=== PATIENT | male | born 2000 | race Hispanic/Latino ===

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

== ENCOUNTER 2019-01-22 06:41 | Emergency (ER) | payer BC ==
[2019-01-22] MEDS ORDERED: Ketorolac Tromethamine 30 MG/ML VIAL ONE (07:07)
== END 2019-01-22 07:30 | disposition home or self-care (01) ==
LOC: SCSER 06:41
DX: M27.8 Other specified diseases of jaws (principal)
CPT/HCPCS: 96372; 99283; J1885

== ENCOUNTER 2019-01-24 21:37 | Emergency (ER) | payer BC ==
[~2019-01-24 21:37] MED LIST: ISOVUE-370 76%-LOCM 1 ML ONE
[2019-01-25] MEDS ORDERED: Clindamycin 150 MG CAP ONE (00:01)
[2019-01-25 00:02] LABS: #Basophils 0.1 thou/uL (0.0-0.2); #Eosinphils 0.3 thou/uL (0.0-0.7); #Lymphocytes 1.7 thou/uL (1.20-3.40); #Monocytes 0.9 thou/uL (0.11-0.59); #Neutrophils 4.5 thou/uL (1.40-6.50); %Eosinophils 4.2 % (0.0-10.0); %Lymphocytes 22.3 % (28.0-48.0); %Monocytes 12.1 % (0.0-4.0); %Neutrophils 60.4 % (31.0-61.0); Mean Corpuscular HGB CONC 33.5 g/dL (32.0-36.0); Mean Corpuscular Hemoglobin 29.5 pg (25.0-35.0); Mean Platelet Volume 6.5 fL (7.4-10.4); Platelet Count 247 thou/uL (130-400); RBC Distribution Width 11.8 % (11.5-14.5); White Blood Cell (WBC) Count 7.5 thou/uL (4.8-10.8)
[2019-01-25 00:20] LABS: ALT (SGPT) 10 U/L (8-55); AST (SGOT) 13 U/L (10-45); Albumin 4.2 g/dL (3.5-5.0); Alkaline Phosphatase 68 U/L (50-130); Anion Gap 14 mmol/L (10-20); BUN (Urea Nitrogen) 11 mg/dL (8.4-21.0); Bilirubin, Total 0.9 mg/dL (0.2-1.2); Calc. Creatinine Clearance 0 mL/min (70-130); Calcium 9.6 mg/dL (7.8-10.44); Carbon Dioxide 27 mmol/L (22-29); Chloride 99 mmol/L (98-107); Estimated GFR-MDRD Greater than 90; Globulin 3.4 g/dL (2.4-3.5); Glucose 83 mg/dL (70-105); Protein, Total 7.6 g/dL (6.0-8.3); Sodium 136 mmol/L (136-145)
[2019-01-25] MEDS ORDERED: Morphine 4 MG/ML VIAL ONE (02:19)
[2019-01-25] MEDS ORDERED: Ketorolac Tromethamine 30 MG/ML VIAL ONE (02:19)
--- NOTE | 2019-01-25 09:03 | CT ---
PRELIMINARY REPORT/[facility]/EMERGENCY AFTER HOURS PROCEDURE: PROCEDURE INFORMATION: Exam: CT Maxillofacial Without Contrast Exam date and time: 01/25/2019 12:09 AM Clinical history: 18 years old, male; Patient HX: 18 yo with left lower tooth abscess. Had partial ro ot canal yesterday, has been taking amoxicillin. Swelling worsened, subj. Fevers, chills pain and eugene thema spreading from mandible down neck. No other medical problems. TECHNIQUE: Imaging protocol: Computed tomography images of the face without contrast. COMPARISON: No relevant prior studies available. FINDINGS: Orbits: Orbits are normal. Globes are unremarkable. Sinuses: Normal. No air-fluid levels. Bones/joints: No acute fracture. No dislocation. Lymph nodes: Submandibular / submental adenopathy, left > right, likely reactive. Soft tissues: Extensive dental amalgam produces streak artifact. Skin thickening and infitrative fat stranding about the left mandibular body, face, and neck, with associated 1.1 x 0.8 x 0.4 cm subperio steal abscess ventral to the left mandibular body, 3 cm lateral to midline (series 2, image 50). IMPRESSION: Left facial / neck cellulitis with left mandibular body subperiosteal abscess. This abscess is likely not drainable percuatneously due to size / position. No soft tissue gas. No thrombophlebitis. Thank you for allowing us to participate in the care of your patient. Dictated and Authenticated by: Jo Ann Del Cid MD 01/25/2019 1:12 AM Central Time ([place] & [place]) FINAL REPORT EMERGENCY AFTER HOURS CT FACIAL BONES: FINDINGS/IMPRESSION: I agree with the findings and impression given in the preliminary report per [facility] physician. There is a left mandibular subperiosteal fluid collection which may represent a very small abscess. POS: [facility]
== END 2019-01-25 02:30 | disposition home or self-care (01) ==
LOC: ERS 21:37
DX: K04.7 Periapical abscess without sinus (principal); L03.221 Cellulitis of neck
CPT/HCPCS: 70487; 80053; 85025; 96374; 96375; J1885; J2270

== ENCOUNTER 2019-10-02 16:52 | Emergency (ER) | payer BC, OTHER ==
[2019-10-03 14:32] LABS: SARS-CoV-2 MS2 Positive; SARS-CoV-2 N Gene Negative; SARS-CoV-2 S Gene Negative; SARS-CoV-2 orf1ab Negative
== END 2019-10-02 17:14 | disposition home or self-care (01) ==
LOC: ERS 16:52
DX: J34.89 Other specified disorders of nose and nasal sinuses (principal); Z20.828 Contact with and (suspected) exposure to other viral communicable diseases
CPT/HCPCS: 87635; 99283; U0003

== ENCOUNTER 2020-02-05 20:10 | Emergency (ER) | payer BC ==
[2020-02-05] MEDS ORDERED: Acetaminophen 500 MG TAB ONE (21:34)
[2020-02-05] MEDS ORDERED: Ondansetron PF 4 MG/2 ML Vial ONE (22:06)
[2020-02-05] MEDS ORDERED: Ketorolac Tromethamine 30 MG/ML VIAL ONE (22:06)
[2020-02-05 22:22] LABS: Hemoglobin 15.6 g/dL (14.0-18.0); Mean Corpuscular HGB CONC 34.8 g/dL (32.0-36.0); Mean Corpuscular Hemoglobin 31.3 pg (25.0-35.0); Mean Corpuscular Volume 89.9 fL (78.0-98.0); RBC Distribution Width 12.4 % (11.5-14.5); Red Blood Cell (RBC) Count 4.99 mill/uL (4.00-5.20); White Blood Cell (WBC) Count 3.2 thou/uL (4.8-10.8)
[2020-02-05 22:43] LABS: ALT (SGPT) 15 U/L (8-55); AST (SGOT) 24 U/L (5-34); Albumin 3.8 g/dL (3.5-5.0); Alkaline Phosphatase 67 U/L (50-130); Anion Gap 15 mmol/L (10-20); BUN (Urea Nitrogen) 12 mg/dL (8.9-20.6); Bilirubin, Total 0.4 mg/dL (0.2-1.2); Calc. Creatinine Clearance 0 mL/min (70-130); Calcium 8.5 mg/dL (7.8-10.44); Carbon Dioxide 24 mmol/L (22-29); Chloride 96 mmol/L (98-107); Estimated GFR-MDRD Greater than 90; Globulin 3.3 g/dL (2.4-3.5); Glucose 106 mg/dL (70-105); Potassium 3.6 mmol/L (3.5-5.1); Protein, Total 7.1 g/dL (6.0-8.3); Sodium 131 mmol/L (136-145)
[2020-02-05 22:44] LABS: #Eosinphils 0.1 thou/uL (0.0-0.7); #Lymphocytes 0.5 thou/uL (1.20-3.40); #Monocytes 0.4 thou/uL (0.11-0.59); #Neutrophils 2.3 thou/uL (1.40-6.50); %Basophils 0.3 % (0.0-1.0); %Eosinophils 1.8 % (0.0-10.0); %Lymphocytes 14.2 % (28.0-48.0); %Monocytes 11.2 % (0.0-4.0); %Neutrophils 72.5 % (31.0-61.0); Mean Platelet Volume 7.7 fL (7.4-10.4); Platelet Count 113 thou/uL (130-400); Platelet Morphology Comment Appears Decreased
--- NOTE | 2020-02-05 23:39 | RAD ---
EXAM: CHEST ONE VIEW HISTORY: Fever, shortness of breath, chills, and body aches. COMPARISON: None FINDINGS: The cardiac silhouette and pulmonary vasculature are within normal limits. The lungs are clear. The o sseous structures are intact. IMPRESSION: No acute cardiopulmonary process.
[2020-02-06 14:55] LABS: SARS-CoV-2 MS2 Positive; SARS-CoV-2 N Gene Negative; SARS-CoV-2 S Gene Negative; SARS-CoV-2 by NAA Not Detected (NotDetected); SARS-CoV-2 orf1ab Negative
== END 2020-02-05 23:33 | disposition home or self-care (01) ==
LOC: ERS 20:10
DX: R05 Cough (principal); R19.7 Diarrhea, unspecified; R50.9 Fever, unspecified; R11.0 Nausea; Z20.828 Contact with and (suspected) exposure to other viral communicable diseases; F17.290 Nicotine dependence, other tobacco product, uncomplicated
CPT/HCPCS: 71045; 80053; 85025; 87635; 87804; 96374; 96375; J1885; J2405; U0003

== ENCOUNTER 2020-02-07 15:03 | Emergency (ER) | payer BC ==
[2020-02-07] MEDS ORDERED: Ketorolac Tromethamine 30 MG/ML VIAL ONE (15:57)
--- NOTE | 2020-02-07 15:59 | RAD ---
Chest AP view INDICATION: History of headache, abdominal pain, bloody stool, shortness breath, chest pain and fever COMPARISON: February 05, 2020 FINDINGS: Lungs: The lungs are clear Cardiac silhouette: The cardiomediastinal silhouette appears within normal limits. Pulmonary vasculature: Normal Pleural spaces: No pleural effusion or pneumothorax is demonstrated. Upper abdomen: No abnormality seen. Osseous structures: No acute osseous abnormality. Additional findings: None. IMPRESSION: No acute cardiopulmonary abnormality.
[2020-02-07 16:18] LABS: #Lymphocytes 1.2 thou/uL (1.20-3.40); #Monocytes 0.4 thou/uL (0.11-0.59); #Neutrophils 2.5 thou/uL (1.40-6.50); %Basophils 0.9 % (0.0-1.0); %Eosinophils 0.5 % (0.0-10.0); %Monocytes 9.8 % (0.0-4.0); %Neutrophils 60.8 % (31.0-61.0); Mean Corpuscular HGB CONC 35.2 g/dL (32.0-36.0); Mean Corpuscular Hemoglobin 31.4 pg (25.0-35.0); Mean Corpuscular Volume 89.2 fL (78.0-98.0); Mean Platelet Volume 7.6 fL (7.4-10.4); Platelet Count 101 thou/uL (130-400); RBC Distribution Width 12.4 % (11.5-14.5); Red Blood Cell (RBC) Count 4.79 mill/uL (4.00-5.20); White Blood Cell (WBC) Count 4.2 thou/uL (4.8-10.8)
[2020-02-07 16:40] LABS: ALT (SGPT) 22 U/L (8-55); AST (SGOT) 38 U/L (5-34); Albumin 3.5 g/dL (3.5-5.0); Alkaline Phosphatase 63 U/L (50-130); Anion Gap 11 mmol/L (10-20); BUN (Urea Nitrogen) 7 mg/dL (8.9-20.6); Bilirubin, Total 0.3 mg/dL (0.2-1.2); Calc. Creatinine Clearance 0 mL/min (70-130); Calcium 8.3 mg/dL (7.8-10.44); Carbon Dioxide 27 mmol/L (22-29); Chloride 100 mmol/L (98-107); Estimated GFR-MDRD Greater than 90; Globulin 3.1 g/dL (2.4-3.5); Glucose 98 mg/dL (70-105); Lipase 26 U/L (8-78); Potassium 3.5 mmol/L (3.5-5.1); Protein, Total 6.6 g/dL (6.0-8.3); Sodium 134 mmol/L (136-145)
[2020-02-07 16:45] LABS: MONO NEGATIVE CONTROL ZONE White (Negative) (White); MONO POSITIVE CONTROL Pink Line (Positive) (PINK/RED); Mononucleosis NEGATIVE (NEGATIVE)
== END 2020-02-07 17:22 | disposition home or self-care (01) ==
LOC: ERS 15:03
DX: B34.9 Viral infection, unspecified (principal); R10.9 Unspecified abdominal pain; F17.290 Nicotine dependence, other tobacco product, uncomplicated
CPT/HCPCS: 36415; 71045; 80053; 83690; 85025; 86308; 93005; 96374; J1885

== ENCOUNTER 2023-03-30 15:43 | Emergency (ER) | payer BC ==
[2023-03-30] MEDS ORDERED: Ketorolac Tromethamine 30 MG (1 mL) VIAL ONE (16:27)
== END 2023-03-30 16:43 | disposition home or self-care (01) ==
LOC: ERS 15:43
DX: K62.89 Other specified diseases of anus and rectum (principal); K92.1 Melena; B20 Human immunodeficiency virus [HIV] disease; F17.290 Nicotine dependence, other tobacco product, uncomplicated
CPT/HCPCS: 96372; 99283; J1885